=== PATIENT | female | born 1945 | race Caucasian/White ===

== ENCOUNTER 2017-11-01 15:55 | Inpatient (IN) | payer MEDICARE ==
[2017-11-01 19:44] LABS: ABS Basophils 0 10^3/ul (0-0.2); ABS Eosinophils 0.1 10^3/ul (0-0.6); ABS Lymphocytes 1.3 10^3/ul (1.0-4.8); ABS Monocytes 0.5 10^3/ul (0-0.8); ABS Neutrophils 2.5 10^3/ul (1.5-7.7); ABS Nucleated RBC 0 10^3/ul; Eosinophil % 1.6 % (0-6); Hematocrit 41 % (35-47); Hemoglobin 13.7 g/dl (12.0-16.0); Lymphocyte % 29.1 % (25-47); Mean Corpuscular HGB Conc 33 g/dl (31-36); Mean Corpuscular Hemoglobin 29 pg (27-31); Mean Corpuscular Volume 88 fL (80-97); Mean Platelet Volume 9 um3 (7.4-10.4); Nucleated Red Blood Cells % 0; Platelet Count 219 10^3/ul (150-450); Red Blood Count 4.67 10^6/ul (4.0-5.4); Red Cell Distribution Width 14 % (10.5-15); White Blood Count 4.4 10^3/ul (3.5-10.8)
[2017-11-01 19:54] LABS: EGFR Non-African American 70.7 (>60)
[2017-11-01 21:30] LABS: Urine Appearance Cloudy; Urine Blood 1+ (Negative); Urine Color Straw; Urine Ketones Negative (Negative); Urine Protein Negative (Negative); Urine Specific Gravity 1.008 (1.010-1.030); Urine Urobilinogen Negative (Negative)
[2017-11-01] MEDS ORDERED: Gadoteridol* (CONTRAST) 279.3 MG/ML 10 ML IV ONE (22:00)
[2017-11-01] MEDS ORDERED: Dexamethasone IV* 4 MG/ML 5 ML VIAL (20 MG) IVPB ONE (23:14)
--- NOTE | 2017-11-01 23:51 | HP ---
H&P (Free Text) History and Physical: PCP: Estrada Bradford DO Oncology: Eladia Turner MD Date/Time: 11/01/2017 9580 CC: difficulty finding words HPI: Mrs Self is a 72YO female HX adenoCA of RLL lung s/p lobectomy, chemo- & radioTX who has been having progressive word searching difficulties since Rick for which she was referred to [facility] for MRI brain that found a 5cm L frontal metastatic lesion. She denies W/N/T, change in bowel/bladder, or other issues. Eladia Cardona MD neurosurgery & Julisa Gutierrez MD oncology were consulted by ED and will follow. PMedHx adenoCA RLL s/p lobectomy chemo- & radioTX DM2 HTN HLD Ambulatory Orders Atorvastatin* [Lipitor*] 20 mg PO BEDTIME 09/07/16 Calcium Carbonate-Vitamin D [Calcium 600+D 600-200 mg-Unit] 1 tab PO DAILY 09/07 Insulin GLARGINE(*) [Lantus(*)] 20 unit SUBCUT BEDTIME 09/07/16 Valsartan TAB* [Diovan TAB*] 80 mg PO BEDTIME 09/07/16 metFORMIN* [Glucophage*] 2,000 mg PO DAILY 09/07/16 Albuterol 0.5% CONC NEB.FROY* [Albuterol 0.5ol*] 1 mg PO DAILY PRN 11/01/17 Insulin NPH Isophane & Reg (Hu [Novolin 70/30 Relion] 6 units SUBCUT DAILY 11/01 Metoprolol Tartrate TAB* [Lopressor TAB*] 25 mg PO BID 11/01/17 Multivitamins/Minerals TAB* [Theragran/minerals TAB*] 1 tab PO DAILY 11/01/17 Allergies Nickel Allergy (Severe, Verified 09/07/16 17:22) Blisters Quinapril [From Accupril] Allergy (Intermediate, Verified 09/07/16 17:22) Unknown Reaction Details Acetaminophen [From [place]] Allergy (Unknown, Verified 09/07/16 17:22) Unknown Reaction Details Hydrocodone [From [place]] Allergy (Unknown, Verified 09/07/16 17:22) Unknown Reaction Details NSAIDs Allergy (Unknown, Verified 09/07/16 17:22) Unknown Reaction Details Fenofibrate [From [place] 145mg] Allergy (Verified 12/20/16 11:36) Unknown Reaction Details Lecithin [From [place] 145mg] Allergy (Verified 12/20/16 11:36) Unknown Reaction Details PSurgHx OU cataract extractions tonsillectomy tubal ligation B salpingo-oophorectomy R wrist ORIF L TKA SocHx: quit smoking ~30years ago w/ >20PYHX, no significant alcohol, denies recreational drugs; lives alone; full code status FamHx: positive for CKD, cirrhosis, CAD, ovarian CA, DM2, melanoma ROS: as above, otherwise reviewed and all were negative vitals: Vital Signs Temp 36.3 C 11/02/17 01:36 Pulse 96 11/02/17 01:36 Resp 16 11/02/17 01:36 BP 142/70 11/02/17 01:36 Pulse Ox 95 11/02/17 01:36 Intake & Output 11/01/17 11/01/17 11/02/17 11:59 23:59 11:59 Intake Total 20 Balance 20 Weight 87.997 kg Intake: IV Fluids 20 Constitutional: NAD, normally developed, obese white female HEENM: atraumatic; sclera/conjunctiva: anicteric/clear, mucosa moist; hearing: clinically intact; oropharynx: clear, mucosa moist Neck: soft tissue: non-tender; thyroid: normal Pulmonary: clear to auscultation bilaterally, good aeration, no accessory muscle use CV: RR/RR, normal S1S2, no carotid bruit, no jugular venous distention, 2+ B DP/ PT, no edema Abdominal: soft, non-distended, non-tender, no rebound/guarding/rigidity, normoactive bowel sounds, no hepatosplenomegaly or masses, no costovertebral angle tenderness Musculoskeletal: general: grossly intact, no tenderness w/ palpation Integumental: normal appearance and texture of exposed skin Psychiatric orientation: AA&O to PPS affect: calm mood: pleasant eye contact: good content: reliable, but has difficulty 2nd expressive aphasia responses: slowed insight: fair Testing: Lab Results 11/01/17 11/01/17 11/01/17 Range/Units 19:25 19:25 21:10 WBC 4.4 (3.5-10.8) 10^3/ul RBC 4.67 (4.0-5.4) 10^6/ul Hgb 13.7 (12.0-16.0) g/dl Hct 41 (35-47) % MCV 88 (80-97) fL MCH 29 (27-31) pg MCHC 33 (31-36) g/dl RDW 14 (10.5-15) % Plt Count 219 (150-450) 10^3/ul MPV 9 (7.4-10.4) um3 Neut % (Auto) 56.9 (38-83) % Lymph % (Auto) 29.1 (25-47) % [place] % (Auto) 11.4 H (1-9) % Eos % (Auto) 1.6 (0-6) % Baso % (Auto) 1.0 (0-2) % Absolute Neuts (auto) 2.5 (1.5-7.7) 10^3/ul Absolute Lymphs (auto) 1.3 (1.0-4.8) 10^3/ul Absolute Monos (auto) 0.5 (0-0.8) 10^3/ul Absolute Eos (auto) 0.1 (0-0.6) 10^3/ul Absolute Basos (auto) 0 (0-0.2) 10^3/ul Absolute Nucleated RBC 0 10^3/ul Nucleated RBC % 0 Sodium 139 (133-145) mmol/L Potassium 3.9 (3.5-5.0) mmol/L Chloride 105 (101-111) mmol/L Carbon Dioxide 27 (22-32) mmol/L Anion Gap 7 (2-11) mmol/L BUN 16 (6-24) mg/dL Creatinine 0.80 (0.51-0.95) mg/dL Est GFR ( Amer) 90.9 (>60) Est GFR (Non-Af Amer) 70.7 (>60) BUN/Creatinine Ratio 20.0 (8-20) Glucose 98 (70-100) mg/dL Calcium 9.7 (8.6-10.3) mg/dL Magnesium 1.8 L (1.9-2.7) mg/dL Total Bilirubin 0.70 (0.2-1.0) mg/dL AST 20 (13-39) U/L ALT 17 (7-52) U/L Alkaline Phosphatase 67 (34-104) U/L Total Protein 6.7 (6.4-8.9) g/dL Albumin 4.1 (3.2-5.2) g/dL Globulin 2.6 (2-4) g/dL Albumin/Globulin Ratio 1.6 (1-3) TSH 3.64 (0.34-5.60) mcIU/mL Urine Color Straw Urine Appearance Cloudy Urine pH 5.0 (5-9) Ur Specific [place] 1.008 L (1.010-1.030) Urine Protein Negative (Negative) Urine Ketones Negative (Negative) Urine Blood 1+ H (Negative) Urine Nitrate Negative (Negative) Urine Bilirubin Negative (Negative) Urine Urobilinogen Negative (Negative) Ur Leukocyte Esterase 2+ H (Negative) Urine WBC (Auto) 1+(6-10/hpf) H (Absent) Urine RBC (Auto) Trace(0-2/hpf) (Absent) Amorphous Crystals Present H (Absent) Urine Bacteria Absent (Absent) Urine Glucose Negative (Negative) MRI brain W, personally reviewed: IMPRESSION: Positive for left frontal mass with surrounding edema and mass effect. Given the provided history, this likely reflects metastatic disease. Impression: 72F HX adenoCA RLL lung s/p lobectomy, chemo- & radioTX presents with progressive word searching for the past 3 weeks and new finding of 5cm L frontal mass DIAGNOSIS & PLAN Primary adenoCA RLL lung s/p lobectomy & chemo-/radioTX with new 5cm L frontal mass & expressive aphasia : Eladia Cardona MD neurosurgery consulted by ED, will evaluate in AM : given 10mg IV dexamethasone in ED, continue PO at 4mg Q8H : supportive care Secondary DM2 : insulin carb ratio diet : basal/bolus/correctional insulin : hold metformin : check A1c HTN : review meds once reconciled HLD : review meds once reconciled Admission Rational: inpatient for evaluation of new L frontal mass, HX CA; inappropriate for outpatient setting given progression of symptoms DVTp: heparin SQ & SCDs Code Status: full HCP: daughterDesiree
[2017-11-02] MEDS ORDERED: CMCS: Melatonin (NF) 3 MG TAB PO PRN (01:56)
[2017-11-02] MEDS ORDERED: Albuterol 2.5 MG/3 ML NEB.SOL* (0.083%) INH PRN (01:56)
[2017-11-02] MEDS ORDERED: Ondansetron INJ* 2 MG/ML VIAL IV PRN (01:56)
[2017-11-02] MEDS ORDERED: NS 0.9% 1000 ML* 1,000 ML IV SCH (02:00)
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
[2017-11-02 04:12] LABS: EGFR Non-African American 63.3 (>60)
[2017-11-02 04:13] LABS: INR 0.98 (0.77-1.02)
[2017-11-02 05:12] LABS: Hematocrit 36 % (35-47); Hemoglobin 11.9 g/dl (12.0-16.0); Mean Corpuscular HGB Conc 33 g/dl (31-36); Mean Corpuscular Hemoglobin 28 pg (27-31); Mean Corpuscular Volume 85 fL (80-97); White Blood Count 7.9 10^3/ul (3.5-10.8)
[2017-11-02 05:14] LABS: ABS Basophils 0.1 10^3/ul (0-0.2); ABS Eosinophils 0 10^3/ul (0-0.6); ABS Lymphocytes 0.6 10^3/ul (1.0-4.8); ABS Monocytes 0.2 10^3/ul (0-0.8); ABS Neutrophils 7.1 10^3/ul (1.5-7.7); ABS Nucleated RBC 0 10^3/ul; Eosinophil % 0.2 % (0-6); Lymphocyte % 7.6 % (25-47); Mean Platelet Volume 9 um3 (7.4-10.4); Nucleated Red Blood Cells % 0.1; Platelet Count 189 10^3/ul (150-450); Red Cell Distribution Width 17 % (10.5-15)
[2017-11-02] MEDS ORDERED: Dexamethasone TAB* 4 MG PO SCH (06:00)
[2017-11-02] MEDS ORDERED: Omeprazole CAP* 20 MG PO SCH (06:00)
[2017-11-02] MEDS ORDERED: Dexamethasone IV* 8 MG in NS 0.9% 50 ML* 50 ML IVPB SCH (08:00)
--- NOTE | 2017-11-02 08:00 | RAD ---
HISTORY: Stroke, lung cancer COMPARISONS: None TECHNIQUE: The following sequences were obtained of the head: Sagittal T1-weighted images, axial T2-weighted images, axial FLAIR images, axial susceptibility weighted images, axial T1-weighted images. Additionally, axial diffusion-weighted images were obtained with calculated apparent diffusion coefficients. Additionally, sagittal, coronal, and axial T1-weighted images were obtained after contrast enhancement with a gadolinium-based intravenous contrast agent. FINDINGS: HEMORRHAGE/INFARCT: There is no hemorrhage or acute infarct. MASSES/SHIFT: There is a complex cystic and solid heterogeneously enhancing intra-axial mass of the left frontal lobe. This is bilobed, measuring approximately 5.4 x 4.8 x 4.4 cm in maximum dimension. There is associated vasogenic edema. There is mass effect with subfalcine shift to the left of approximately 2 cm. There is preservation of the basal cisterns. EXTRA-AXIAL SPACES/MENINGES: There are no extra-axial fluid collections. SULCI AND VENTRICLES: The sulci and ventricles are normal in size and position for the patient's stated age. CEREBRUM: As noted above, there is a cystic and solid heterogeneously enhancing mass of the left frontal lobe with associated vasogenic edema and subfalcine shift to the right. BRAINSTEM: There are no focal parenchymal abnormalities. CEREBELLUM: There are no focal parenchymal abnormalities. The cerebellar tonsils are normal in size and position. SELLA: The sella is normal. PINEAL: The pineal region is clear. CP ANGLE/TEMPORAL BONES: The labyrinthine structures are grossly normal. VESSELS: Normal flow-voids are noted within the visualized vertebral vasculature. DIFFUSION ABNORMALITIES: There are no diffusion abnormalities. PARANASAL SINUSES/MASTOIDS: The paranasal sinuses are clear. ORBITS: The orbits are unremarkable. BONES AND SOFT TISSUE: No bone or soft tissue abnormalities are noted. OTHER: None IMPRESSION: THERE IS AN APPROXIMATELY 5.4 CM MASS OF THE LEFT FRONTAL LOBE WITH VASOGENIC EDEMA AND SUBFALCINE SHIFT TO THE RIGHT MEASURING UP TO 2 CM. THE BASAL CISTERNS ARE PRESERVED. GIVEN THE HISTORY OF LUNG CANCER, THIS IS MOST CONSISTENT WITH METASTATIC DISEASE TO THE BRAIN. THESE FINDINGS WERE DISCUSSED WITH DR. PETERSON BY DR. WILDE AT APPROXIMATELY 12:39 AM ON MONDAY, NOVEMBER 02, 2015
[2017-11-02] MEDS ORDERED: Docusate CAP* 100 MG PO SCH (09:00)
[2017-11-02] MEDS ORDERED: Metoprolol Tartrate TAB* 25 MG PO SCH (09:00)
[2017-11-02] MEDS: Insulin LISPRO* 1 UNITS UNIT SUBCUT SCH ×6 (09:24→18:13)
[2017-11-02] MEDS: Dexamethasone IV* 4 MG/ML 1 ML (4 MG) IV SLOW PU SCH ×2 (09:39→13:38)
--- NOTE | 2017-11-02 10:18 | PN ---
Progress Note - Progress Note Date of Service: 11/02/17 SOAP: Subjective: []Asked to see patient with brain tumor found on CT. Patient with history of lung carcinoma. Presented with 4 week history of progressive word finding difficulty.No headache or seizure activity.Patient given Decadron in ER and admitted for evaluation and probable surgery Objective: []Awake, alert Expressive aphasia noted intermittently Motor normal Assessment: [] Metastatic Left frontal tumor Plan: [] Suregry tentatively planned for 11/04 Full C/S to follow
--- NOTE | 2017-11-02 15:35 | CONSULT ---
Consult Consult: Neurosurgery Consult Date of Admission: 11/01/17 Date of Consult: 11/02/17 Reason for Consult: Left frontal lobe tumor Referring Provider: Dr. Monreal HPI: This is a 72 year old female with past medical history significant for adenocarcinoma of the lung, HTN, HLD, insulin dependent diabetes mellitus, who presented to [place] [facility] [place] with complaint of difficulty word finding, worsening over the past 4 weeks. She states that she was diagnosed with lung cancer in June 2017, underwent chemotherapy and then right lower lobe lobectomy in November 2016, followed by radiation therapy. Surgery was performed at [facility] in [place]. She follows with Dr. Turner and Dr. Saldana. She reports follow up imaging of the lungs, most recently in September 2017, was without recurrence of lesions. She has been feeling very well and her only complaint is the difficulty saying what she is thinking. She denies headache, seizure, vision changes, difficulty swallowing or eating, hearing changes, neck pain, chest pain and palpitations, difficulty breathing and shortness of breath, abdominal pain, nausea, vomiting; numbness, tingling weakness and pain in the upper and lower extremities; gait instability, decreased coordination, dizziness, lightheadedness and weight loss. The patient's daughter, son and daughter in law were present for a portion of the visit. They report no concerning symptoms with the exception of speech change. Past medical history: 1. Adenocarcinoma of the lung 2. HTN 3. IDDM 4. HLD Past surgical history: 1. Right lower lobe lobectomy- [facility] 11/2016 2. Bilateral salpingo-oophrectomy- 2011 3. Wrist surgery with plate placement- 2011 4. Left total knee replacement- 2013 5. Bilateral cataract extractions 6. Tonsillectomy Home medications: 1. Atorvastatin* [Lipitor*] 20 mg PO BEDTIME 09/07/16 [History Confirmed ] 2. Calcium Carbonate-Vitamin D [Calcium 600+D 600-200 mg-Unit] 1 tab PO DAILY [History Confirmed 11/01/17] 3. Insulin GLARGINE(*) [Lantus(*)] 20 unit SUBCUT BEDTIME 09/07/16 [History Confirmed 11/01/17] 4. Valsartan TAB* [Diovan TAB*] 80 mg PO BEDTIME 09/07/16 [History Confirmed ] 5. metFORMIN* [Glucophage*] 2,000 mg PO DAILY 09/07/16 [History Confirmed ] 6. Albuterol 0.5% CONC NEB.FROY* [Albuterol 0.5ol*] 1 mg PO DAILY PRN 11/01/17 [ History Confirmed 11/01/17] 7. Insulin NPH Isophane & Reg (Hu [Novolin 70/30 Relion] 6 units SUBCUT DAILY [History Confirmed 11/01/17] 8. Metoprolol Tartrate TAB* [Lopressor TAB*] 25 mg PO BID 11/01/17 [History Confirmed 11/01/17] 9. Multivitamins/Minerals TAB* [Theragran/minerals TAB*] 1 tab PO DAILY [History Confirmed 11/01/17] Allergies: 1. Nickel Allergy (Severe, Verified 09/07/16 17:22) Blisters 2. Quinapril [From Accupril] Allergy (Intermediate, Verified 09/07/16 17:22) Unknown Reaction Details 3. Acetaminophen [From [place]] Allergy (Unknown, Verified 09/07/16 17:22) Unknown Reaction Details 4. Hydrocodone [From [place]] Allergy (Unknown, Verified 09/07/16 17:22) Unknown Reaction Details 5. NSAIDs Allergy (Unknown, Verified 09/07/16 17:22) Unknown Reaction Details 6. Fenofibrate [From Tricor 145mg] Allergy (Verified 12/20/16 11:36) Unknown Reaction Details 7. Lecithin [From Tricor 145mg] Allergy (Verified 12/20/16 11:36) Unknown Reaction Details Social history: This patient is a former 1ppd smoker for 21 years. She does not consume alcohol. ROS: Full ROS completed. Pertinent findings stated in HPI and all others negative. Physical exam: Vital Signs: Temp Pulse Resp BP Pulse Ox 97.6 F 110 16 131/69 96 11/02/17 07:38 11/02/17 07:38 11/02/17 08:00 11/02/17 07:38 11/02/17 08:00 General: Expressive aphasia throughout interview. Patient is laying comfortably in bed, no acute pain or distress. HEENT: Head is normocephalic and atraumatic. PERRL, EOMI, sclerae anicteric. Gross hearing intact, mildly diminished left ear. Moist mucus membranes. Neck: NEck is supple and symmetric. No obvious deformity. Nontender to palpation anteriorly and posteriorly. CV: Radial pulses 2+ and equal. Pedal pulses 1+ and equal. Lungs: Breathing is nonlabored. Lungs are clear. Abdomen: The abdomen is mildly rounded. Normoactive bowel sounds. Abdomen is soft, nontender and nondistended. Neuro: Oriented to person, place and date. Expressive aphasia throughout all responses. Answers most questions appropriately. CN II-XII intact. No pronator drift. Finger to nose and heel to [place] coordination intact. Sensation intact throughout. Strength 5/5 in upper and lower extremities. Imagin. 11/01/17- MRI of the brain shows large left frontal lobe metastatic lesion with edema and shift. Assessment and Plan: This patient presents with expressive aphasia for the past 4 weeks and has a history of adenocarcinoma of the lung. MRI of the brain was obtained and shows a large left frontal metastatic lesion. With the exception of aphasia, the patient is otherwise neurologically intact and is feeling well. Surgical resection of the lesion is recommended. She has undergone treatments at [facility] in the past and would like to be transferred there for continued management. The patient's family has contacted [facility] and is in agreement that they would like her to be transferred. This case was discussed with Dr. Cardona who has also discussed the case with Dr. Gutierrez.
[2017-11-02 16:49] VITALS: BP 125/61
--- NOTE | 2017-11-02 17:26 | TRS ---
CC: Dr. Turner; Dr. Bradford; [facility] DATE OF ADMISSION: 11/01/2017. DATE OF TRANSFER TO [facility]: 11/02/2017. HISTORY OF PRESENT ILLNESS: Ms. Self is a 72-year-old female with a history of adenocarcinoma of the right lower lobe. She was found to have in the fall of 2015 stage 3A adenocarcinoma. She received three cycles of neoadjuvant chemotherapy with Carboplatin and Taxol with Dr Turner, followed by resection at [facility] with Dr Villa, followed by one further cycle of chemotherapy here, followed by 5,040 cGy of radiation therapy here with Dr. Saldana. She has done well since without signs of recurrence and most recently had a chest CT on 09/26/2017 which showed no evidence of persistent or metastatic carcinoma. A small pleural effusion was seen which was unchanged. Paramediastinal infiltrate in the right upper lobe was unchanged, most consistent with radiation therapy changes. No adenopathy was noted. For about the last three to four weeks, the patient has noted increasing difficulty with speech and progressive word finding problems. She has had no issues with other neurologic problems, specifically no headaches, dizziness, lightheadedness, changes in vision, or tingling, numbness or weakness of her extremities. Her family notified our office of this on November 01, a.m. We were trying to arrange an outpatient MRI scan, but could not get this authorized emergently through her insurance, so she was brought into the emergency room and MRI scan of the brain was performed at 9:00 p.m. on 2017. This revealed a 5.4 cm mass of the left frontal lobe with vasogenic edema and subfalcine shift to the right measuring up to 2 cm. Basal cisterns are preserved. This was felt most consistent with metastatic disease. The patient was admitted to the hospital. The patient was seen in consultation by Neurosurgery here with Dr. Tu Cardona. Surgery was offered for 11/04/2017. In the interim, the patient's family decided they would prefer to return to her prior institution for surgery at [facility]. [facility] was notified and a bed transfer was arranged. The patient currently is scheduled for resection on 11/04/2017. Family had initially requested DNR/DNI status, but this would need to be revoked for neurosurgery, so it is on hold and she will likely request this post op. Since coming into the hospital, the patient has somewhat improved in terms of her speech since being started on Decadron. MEDICATIONS AT THE TIME OF DISCHARGE: 1. Decadron 8 mg q.6 hours IV. 2. Metoprolol 25 mg b.i.d. 3. Atorvastatin 20 mg at bedtime. 4. Insulin 21 units of Lantus at bedtime. 5. Valsartan 80 mg daily. 6. Heparin 5,000 units subcu q.8 hours. 7. Docusate 20 mg b.i.d. 8. Lispro per sliding scale. 9. Omeprazole 20 mg daily. 10. Zofran 4 mg q.6 hours prn nausea, although has not received any doses since in the emergency room. 11. Albuterol prn. DISCHARGE DIAGNOSES: 1. Solitary frontal brain metastasis. 2. Stage 3A non-small cell lung cancer, status post neoadjuvant chemotherapy, lobectomy chemotherapy, and then radiation therapy completing nine months ago. 3. History of diabetes. 4. Hypertension. [id number]/[facility] #: [id number] [facility]LAND HOSPITALEnedelia
[2017-11-02] MEDS ORDERED: Insulin GLARGINE(*) 1 UNITS UNIT SUBCUT SCH (21:00)
[2017-11-02] MEDS ORDERED: Atorvastatin* 20 MG TAB PO SCH (21:00)
[2017-11-02] MEDS ORDERED: Valsartan TAB* 80 MG PO SCH (21:00)
[2017-11-03] MEDS ORDERED: Heparin VIAL(*) 5000 UNITS/ML VIAL (FIVE THOUSAND) SUBCUT SCH (14:00)
== END 2017-11-02 18:30 | disposition short-term general hospital (02) | DRG 54 ==
LOC: ED 15:55 → MED 23:42
PROVIDERS: ADMIT Hospitalist; ATTEND Internal Medicine Hematology & Oncology
DX: C79.31 Secondary malignant neoplasm of brain (principal); G93.6 Cerebral edema; E22.2 Syndrome of inappropriate secretion of antidiuretic hormone; C34.90 Malignant neoplasm of unspecified part of unspecified bronchus or lung; E11.9 Type 2 diabetes mellitus without complications; E78.5 Hyperlipidemia, unspecified; Z96.652 Presence of left artificial knee joint; E66.9 Obesity, unspecified; I10 Essential (primary) hypertension; Z92.21 Personal history of antineoplastic chemotherapy; Z92.3 Personal history of irradiation; Z79.4 Long term (current) use of insulin; Z79.01 Long term (current) use of anticoagulants; Z88.8 Allergy status to other drugs, medicaments and biological substances; Z88.6 Allergy status to analgesic agent; Z88.5 Allergy status to narcotic agent; Z98.42 Cataract extraction status, left eye; Z98.41 Cataract extraction status, right eye; Z98.51 Tubal ligation status; Z90.722 Acquired absence of ovaries, bilateral; Z87.891 Personal history of nicotine dependence; Z83.3 Family history of diabetes mellitus; Z82.49 Family history of ischemic heart disease and other diseases of the circulatory system; Z80.41 Family history of malignant neoplasm of ovary; Z80.8 Family history of malignant neoplasm of other organs or systems; Z84.1 Family history of disorders of kidney and ureter; Z83.79 Family history of other diseases of the digestive system; Z68.29 Body mass index [BMI] 29.0-29.9, adult
CPT/HCPCS: 36415; 70553; 80053; 81003; 81015; 82565; 83036; 83735; 84443; 84520; 85025; 85610; 85730; 87086; 96365; 99285; A9270-GY; A9579; J1100; J1642; J8540

== ENCOUNTER 2019-01-05 11:11 | Emergency (ER) | payer MEDICARE ==
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
[2019-01-05 13:39] LABS: ABS Basophils 0 10^3/ul (0-0.2); ABS Eosinophils 0 10^3/ul (0-0.6); ABS Lymphocytes 0.6 10^3/ul (1.0-4.8); ABS Monocytes 0.8 10^3/ul (0-0.8); ABS Neutrophils 7.2 10^3/ul (1.5-7.7); ABS Nucleated RBC 0 10^3/ul; Eosinophil % 0.1 %; Hematocrit 43 % (33-41); Hemoglobin 14.3 g/dL (12.0-16.0); Lymphocyte % 6.5 %; Mean Corpuscular HGB Conc 34 g/dL (31-36); Mean Corpuscular Hemoglobin 31 pg (27-31); Mean Corpuscular Volume 92 fL (80-97); Mean Platelet Volume 8.7 fL (7.4-10.4); Nucleated Red Blood Cells % 0; Platelet Count 200 10^3/uL (150-450); Red Blood Count 4.63 10^6 /uL (3.70-4.87); Red Cell Distribution Width 14 % (10.5-15); White Blood Count 8.6 10^3/uL (3.5-10.8)
[2019-01-05 13:54] LABS: Albumin 4.1 g/dL (3.2-5.2); Albumin/Globulin Ratio 1.6 (1-3); BUN/Creatinine Ratio 19.7 (8-20); C Reactive Protein 100.95 mg/L (<8.01); EGFR African American 97.9 (>60); EGFR Non-African American 80.9 (>60); Globulin 2.5 g/dL (2-4); Potassium 3.9 mmol/L (3.5-5.0); Total Bilirubin 0.9 mg/dL (0.2-1.0); Total Protein 6.6 g/dL (6.4-8.9)
[2019-01-05 15:41] VITALS: BP 158/82
== END 2019-01-05 15:40 | disposition home or self-care (01) ==
LOC: ED 11:11
DX: C79.31 Secondary malignant neoplasm of brain (principal); G93.6 Cerebral edema; E11.9 Type 2 diabetes mellitus without complications; Z79.84 Long term (current) use of oral hypoglycemic drugs; I10 Essential (primary) hypertension; E78.00 Pure hypercholesterolemia, unspecified; Z85.118 Personal history of other malignant neoplasm of bronchus and lung; Z96.652 Presence of left artificial knee joint; Z88.6 Allergy status to analgesic agent; Z88.5 Allergy status to narcotic agent; Z88.8 Allergy status to other drugs, medicaments and biological substances; Z91.048 Other nonmedicinal substance allergy status; Z87.891 Personal history of nicotine dependence
CPT/HCPCS: 36415; 70450; 80053; 85025; 86140; 99283; J1642